=== PATIENT | male | born 1990 | race Caucasian/White ===

== ENCOUNTER 2020-02-29 16:52 | Emergency (ER) | payer SELFPAY ==
--- NOTE | ~2020-02-29 | XR_ITS ---
EXAMINATION: XR knee RT 2V INDICATION: Right knee pain, initial encounter TECHNIQUE: Two views of the right knee are obtained. COMPARISON: None available FINDINGS: There is an acute, traumatic, closed, oblique fracture involving the lateral tibial plateau and extending inferiorly to involve the proximal shaft of the tibia. Lipohemarthrosis is noted in th e knee joint. No additional acute osseous findings are evident.. IMPRESSION: 1. Acute lateral tibial plateau fracture extending into the proximal tibial shaft. Reviewed, dictated and finalized at location A. IMPRESSION: 1. Acute lateral tibial plateau fracture extending into the proximal tibial sha ft.
[2020-02-29 17:43] VITALS: BP 140/76; PULSE 102; RESP 16; TEMP 36.8; O2SAT 96
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
--- NOTE | 2020-02-29 19:01 | PC.NURSE ---
Call placed to [facility] for consult for ortho, Oncall Dr. Diaz for ortho, # recieved for Dr. Diaz
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
[2020-02-29] MEDS: MORPHINE SULFATE 2 MG/ML INJ IV PUSH (19:39)
[2020-02-29 19:41] VITALS: BP 141/71; PULSE 114; RESP 20; TEMP 36.8; O2SAT 98
== END 2020-02-29 20:15 | disposition short-term general hospital (02) ==
PROVIDERS: Emergency Provider Emergency Medicine
DX: S82.141A Displaced bicondylar fracture of right tibia, initial encounter for closed fracture (principal); W22.8XXA Striking against or struck by other objects, initial encounter
CPT/HCPCS: 73560; 96374; 99283; 99285; J2270; L1830

== ENCOUNTER 2020-06-30 10:22 | Outpatient (CLI) | payer OTHER, SELFPAY ==
--- NOTE | ~2020-06-30 | XR_ITS ---
EXAMINATION: XR knee RT 3V DATE: 06/30/2020 10:46 INDICATION: Right knee pain. TECHNIQUE: 3 views of right knee were obtained. COMPARISON: Right knee radiographs 02/29/2020 FINDINGS: Bone alignment is normal. No acute fracture. There is a fracture deformity of lateral tibia l condyle with internal fixation with lateral plate and screws. There is incongruence of the articula r surface. There is moderate osteoarthritis of lateral compartment and mild osteoarthritis of patello femoral compartment. There is a small knee joint effusion. IMPRESSION: 1. Healing fracture of lateral tibial condyle with internal fixation with incongruence of the articul ar surface. 2. Moderate right knee osteoarthritis. 3. Small right knee joint effusion. Reviewed, dictated and finalized at location A. Y LEVEL RECEPTIONIST IMPRESSION: 1. Healing fracture of lateral tibial condyle with internal fixation with incon gruence of the articular surface. 2. Moderate right knee osteoarthritis. 3. Small right knee joint effusion.
--- NOTE | ~2020-06-30 | XR_ITS ---
EXAMINATION: XR tibia fibula RT 2V DATE: 06/30/2020 10:47 INDICATION: Medial right knee pain. TECHNIQUE: 2 views of right tibia and fibula on 3 radiographs were obtained. COMPARISON: Right knee radiographs 02/29/2020 FINDINGS: There is a fracture deformity of lateral tibial condyle with internal fixation with lateral plate and screws. There is incongruence of the articular surface. There is moderate right knee osteo arthritis. IMPRESSION: 1. Healing fracture of lateral tibial condyle with internal fixation with incongruence of the articul ar surface. 2. Moderate right knee osteoarthritis. Reviewed, dictated and finalized at location A. [employer]IST IMPRESSION: 1. Healing fracture of lateral tibial condyle with internal fixation with incon gruence of the articular surface. 2. Moderate right knee osteoarthritis.
== END 2020-06-30 10:23 | disposition home or self-care (01) ==
PROVIDERS: PCP Family Medicine; Visit Provider Family Medicine
DX: M25.561 Pain in right knee (principal)
CPT/HCPCS: 73562; 73590

== ENCOUNTER 2020-09-30 12:49 | Emergency (ER) | payer OTHER, SELFPAY ==
--- NOTE | 2020-09-30 13:08 | ED.SKABFB ---
HPI - Skin/Abscess/Foreign Bdy General Chief complaint: Skin/Abscess/Foreign Body Stated complaint: Chest area swollen Time Seen by Provider: 09/30/20 13:08 Source: patient Mode of arrival: ambulatory Limitations: no limitations History of Present Illness HPI narrative: 30-year-old man comes in today complaining of pain, redness and swelling the right side of his chest that started several days ago. He states that 2 days ago there was a pimple like lesion there and he squeezed it. It has gotten worse since then. He denies fever, nausea, vomiting or prior skin infections. complaint: abscess/boil Onset (ago): day(s) (3-4) Tetanus up to date: unsure Location: chest Severity: moderate Quality: sharp Pain Consistency: constant Relieving factors: none Exacerbating factors: palpation Context: other ( started after he shaved his chest) Associated symptoms: denies other symptoms Treatments prior to arrival: OTC topical medication Related Data Allergies Allergy/AdvReac Type Severity Reaction Status Date / Time No Known Allergies Allergy Verified 02/29/20 18:32 Review of Systems Constitutional: Constitutional: Denies chills and Denies fever(s) ENT: Denies nasal congestion and Denies sore throat Cardiovascular: Cardiovascular: Reports chest pain and Denies radiating jaw, neck or arm pain Respiratory: Respiratory: Denies cough, Denies dyspnea and Denies wheezing Gastrointestinal: Gastrointestinal: Denies diarrhea, Denies nausea and Denies vomiting Musculoskeletal: Musculoskeletal: Denies arthralgias and Denies joint swelling Integumentary/Breasts: Skin/Breast: Denies pruritus, Reports erythema and Denies rash Neurologic: Denies vertigo, Denies dizziness and Denies syncope Hematologic/Lymphatic: Hematologic/Lymphatic: Denies easy bleeding and Denies easy bruising Allergic/Immunologic: Allergic/Immunologic: Denies lip swelling and Denies throat swelling PMFSH Past Medical History Medical History (Updated 09/30/20 @ 13:25 by Misha Barcenas MD) Patient denies medical problems Social History Social History (Updated 09/30/20 @ 13:17 by Misha Barcenas MD) Smoking status: Current every day smoker Alcohol intake: current Alcohol use details: occasional Substance use: never Gender identity (if verbalized by the patient): Male Exam Const: General: healthy appearing, no acute distress and alert Orientation/consciousness: patient oriented x3 Limitations: no limitations Eyes: Conjunctivae: conjunctivae normal Pupils: Equal, round and reactive pupils present EOM: EOMs intact bilaterally Chest: Other: 15 cm diameter area of erythema, the central portion of which is indurated and has a draining lesion. There is no fluctuance. Resp: Effort & Inspection: normal respiratory effort and not labored Auscultation: clear to auscultation bilaterally, no rales, no rhonchi and no wheezes Cardio: Rate: regular rate Rhythm: regular rhythm Heart sounds: no murmurs Skin: General skin exam: normal color, no jaundice and no pallor Rashes: no rashes Neuro: General: patient oriented x3, moves all extremities and no focal motor deficits Speech: normal speech Gait exam (Neuro): Normal gait present Extrem: General: normal to inspection and no clubbing, cyanosis or edema Psych: Appearance: grossly normal and well kempt Mental Status: mental status grossly normal Affect: normal affect Attitude: cooperative Thought content: Yes Normal thought content present Course Vital Signs Vital signs: Vital Signs Temperature 36.6 C 09/30/20 13:17 Pulse Rate 102 H 09/30/20 13:17 Respiratory Rate 20 09/30/20 13:17 Blood Pressure 122/76 09/30/20 13:17 Pulse Oximetry 100 09/30/20 13:17 Temperature 36.6 C 09/30/20 13:17 Pulse Rate 102 H 09/30/20 13:17 Respiratory Rate 20 09/30/20 13:17 Blood Pressure 122/76 09/30/20 13:17 Pulse Oximetry 100 09/30/20 13:17 MDM - Skin/Abscess/Fo
[2020-09-30 13:17] VITALS: BP 122/76; PULSE 102; RESP 20; TEMP 36.6; O2SAT 100
[2020-09-30 13:49] VITALS: BP 110/83; PULSE 100; RESP 20; TEMP 36.7; O2SAT 98
== END 2020-09-30 13:52 | disposition home or self-care (01) ==
PROVIDERS: Emergency Provider Emergency Medicine; PCP Family Medicine
DX: L03.319 Cellulitis of trunk, unspecified (principal); L02.213 Cutaneous abscess of chest wall; F17.200 Nicotine dependence, unspecified, uncomplicated
CPT/HCPCS: 99283

== ENCOUNTER → 2021-03-22 11:31 | Emergency (ER) | payer OTHER, SELFPAY | END | disposition left against medical advice (07) | LOC: CHSED 11:34 | PROVIDERS: Emergency Provider Emergency Medicine; PCP Family Medicine | DX: Z04.9 Encounter for examination and observation for unspecified reason (principal) | CPT/HCPCS: 99199 ==

== ENCOUNTER 2021-03-23 15:49 | Emergency (ER) | payer OTHER, SELFPAY ==
[2021-03-23 16:24] VITALS: BP 137/79; PULSE 115; RESP 20; TEMP 37.3; O2SAT 99
--- NOTE | 2021-03-23 17:06 | ED.SKABFB ---
HPI - Skin/Abscess/Foreign Bdy General Chief complaint: Skin/Abscess/Foreign Body Stated complaint: spider bite Time Seen by Provider: 03/23/21 15:51 Source: patient and RN notes reviewed Mode of arrival: ambulatory Limitations: no limitations History of Present Illness complaint: insect bite/sting Onset (ago): day(s) (2) Location: LUE Severity: moderate Severity scale (1-10): 8 Quality: aching and dull Pain Consistency: constant Relieving factors: none Exacerbating factors: movement Context: other (bite not seen) Associated symptoms: denies other symptoms Treatments prior to arrival: none Related Data Allergies Allergy/AdvReac Type Severity Reaction Status Date / Time No Known Allergies Allergy Verified 02/29/20 18:32 Review of Systems Review of Systems: All systems reviewed & are unremarkable except as noted in HPI and below Constitutional: Constitutional: Reports as per HPI and Reports no additional constitutional complaints Eyes: Eyes: Reports as per HPI and Reports no additional eye complaints ENT: Reports system reviewed and no additional complaints, except as documented and Reports as per HPI Cardiovascular: Cardiovascular: Reports as per HPI and Reports no additional cardiovascular complaints Respiratory: Respiratory: Reports as per HPI and Reports no additional respiratory complaints Gastrointestinal: Gastrointestinal: Reports as per HPI and Reports no additional gastrointestinal complaints Genitourinary: Genitourinary: Reports no additional male genitourinary complaints and Reports as per HPI Musculoskeletal: Musculoskeletal: Reports no additional musculoskeletal complaints and Reports as per HPI Comments: left forearm swelling, redness Integumentary/Breasts: Skin/Breast: Reports system reviewed and no additional complaints, except as docu and Reports as per HPI Neurologic: Reports system reviewed and no additional complaints, except as documented and Reports as per HPI Psychiatric: Psychiatric: Reports no additional psychiatric complaints and Reports as per HPI Endocrine: Endocrine: Reports no additional endocrine complaints and Reports as per HPI Hematologic/Lymphatic: Hematologic/Lymphatic: Reports no additional hematologic/lymphatic complaints and Reports as per HPI Allergic/Immunologic: Allergic/Immunologic: Reports no additional allergic/immunologic complaints and Reports as per HPI PMFSH Past Medical History Medical History Insect bite Patient denies medical problems Social History Social History Smoking status: Current every day smoker Alcohol intake: current Alcohol use details: occasional Substance use: never Gender identity (if verbalized by the patient): Male Exam Const: General: no acute distress and alert Nutritional Appearance: well nourished Orientation/consciousness: patient oriented x3 HENMT: Head: normal to inspection Ears: external ears normal and TM's normal bilaterally General nose exam: Normal external nose present and Normal nares present Mouth: Yes Normal oral and palatal mucosa present and Yes lip normal Teeth and gingiva: dentition normal Eyes: Conjunctivae: conjunctivae normal Pupils: Equal, round and reactive pupils present EOM: EOMs intact bilaterally Neck: Neck: normal visual inspection and no lymphadenopathy Chest: Chest palpation & inspection: normal inspection of the chest Resp: Effort & Inspection: normal respiratory effort Auscultation: clear to auscultation bilaterally Cardio: Rate: regular rate Rhythm: regular rhythm GI: Auscultation: normal bowel sounds : General: Yes no CVA tenderness Testes: Testes normal Back/Spine/Pelvis: Back: no CVA tenderness Skin: Other: Insect bite to right medial forearm: erythematous 2.5 cm diameter firm lump with no acute pus drainage. Neuro: General: patient oriented x3,
--- NOTE | 2021-03-23 17:17 | PC.NURSE ---
1700 pt refused labs and iv and meds and walked out states he does not have an hour to receive fluids and antibiotics got up and walked out
== END 2021-03-23 17:00 | disposition left against medical advice (07) ==
PROVIDERS: Emergency Provider Emergency Medicine; PCP Family Medicine
DX: S40.862A Insect bite (nonvenomous) of left upper arm, initial encounter (principal); L03.90 Cellulitis, unspecified; W57.XXXA Bitten or stung by nonvenomous insect and other nonvenomous arthropods, initial encounter
CPT/HCPCS: 99281; 99282

== ENCOUNTER 2021-07-23 01:23 | Emergency (ER) | payer OTHER, SELFPAY ==
[2021-07-23 01:37] VITALS: BP 138/101; PULSE 116; RESP 18; TEMP 36.6; O2SAT 100
--- NOTE | 2021-07-23 01:40 | ED.WOUNDLAC ---
HPI - Wound/Laceration General Chief Complaint: Wound/Laceration Stated Complaint: wound right arm Source: patient Mode of arrival: ambulatory Limitations: no limitations History of Present Illness HPI narrative: this is a 31-year-old gentleman that presents with an area of inflammation abscess that is firm tender currently not draining with surrounding area of erythema under his right under arm with no fever chills there has been some drainage initially during the day with a yellow discharge. Onset (ago): day(s) Location: other ( right arm) Extremity Location: Right: arm ( this erythema warmth tenderness) Related Data Allergies Allergy/AdvReac Type Severity Reaction Status Date / Time No Known Allergies Allergy Verified 02/29/20 18:32 Review of Systems Review of Systems: All systems reviewed & are unremarkable except as noted in HPI and below PMFSH Past Medical History Medical History Insect bite Patient denies medical problems Social History Social History Smoking status: Current every day smoker Alcohol intake: current Alcohol use details: occasional Substance use: never Gender identity (if verbalized by the patient): Male Exam Const: General: no acute distress and alert Orientation/consciousness: patient oriented x3 HENMT: Head: normal to inspection Eyes: Conjunctivae: conjunctivae normal Pupils: Equal, round and reactive pupils present Neck: Neck: normal visual inspection, no lymphadenopathy and no meningeal signs Chest: Chest palpation & inspection: normal inspection of the chest Resp: Effort & Inspection: normal respiratory effort Auscultation: clear to auscultation bilaterally Cardio: Rate: regular rate Rhythm: regular rhythm GI: GI Palp: Yes Soft to palpation Percussion: Yes normal to percussion Skin: Other: Abscess that is firm nonfluctuant with surrounding area of erythema located under his right underarm Neuro: General: patient oriented x3 and moves all extremities Extrem: General: normal to inspection and no pedal edema Psych: Mental Status: mental status grossly normal Affect: normal affect Course Course Emergency Course: patient to receive uses a tetanus shot and a dose of 1g IM ceftriaxone. Critical Care Time Critical Care Time Critical Care Time: No Discharge Plan Discharge Clinical Impression: Abscess Patient Disposition: Home, Self-Care Condition: Stable Instructions: Antibiotic Form, Abscess (ED) Additional Instructions: take medicine as prescribed can use Tylenol or Motrin along with antibiotics and follow-up with primary care physician within 1 week Prescriptions: New amoxicillin-pot clavulanate [Augmentin] 875-125 mg tablet 1 tablet PO Q12H Qty: 20 RF: 0 No Action acetaminophen-codeine 300-30 mg tablet 1 tablet PO Q6H PRN (Reason: pain) Qty: 6 RF: 0 clindamycin HCl 300 mg capsule 300 mg PO Q6H Qty: 40 RF: 0 Follow-up/Referrals: Shyam Wilson MD [Primary Care Provider] - Time of Disposition: 01:44
[2021-07-23] MEDS: cefTRIAXone 1 GM VIAL IM (01:54)
[2021-07-23] MEDS: LIDOCAINE HCL 1% LOCAL INJ 20 ML VIAL (01:54)
[2021-07-23] MEDS: TETANUS,DIPHTHERIA,AC PERTUSSIS ADULT 0.5 ML (ADACEL) IM (01:56)
[2021-07-23 02:12] VITALS: BP 118/84; PULSE 107; RESP 18; O2SAT 99
== END 2021-07-23 02:28 | disposition home or self-care (01) ==
PROVIDERS: Emergency Provider Emergency Medicine; PCP Family Medicine
DX: L02.413 Cutaneous abscess of right upper limb (principal)
CPT/HCPCS: 90471; 90715; 96372; 99283; J0696

== ENCOUNTER 2022-08-03 12:01 | Emergency (ER) | payer OTHER, SELFPAY ==
[2022-08-03 12:12] VITALS: BP 145/95; PULSE 78; RESP 16; TEMP 36.4; O2SAT 96
--- NOTE | 2022-08-03 12:12 | ED.GENADULT ---
HPI - General Adult General Chief complaint: Dental/Oral Stated complaint: toothache Time Seen by Provider: 08/03/22 12:08 History of Present Illness HPI narrative: Jef is a previously healthy 32M that presented to the ED with worsening tooth pain for the last couple days since he cracked a tooth. He denies fevers, chills, N/V, diarrhea, dysphagia and dyspnea. Related Data Allergies Allergy/AdvReac Type Severity Reaction Status Date / Time No Known Allergies Allergy Verified 08/03/22 12:18 Review of Systems Review of Systems: All systems reviewed & are unremarkable except as noted in HPI and below JANELLSH Past Medical History Medical History Insect bite Patient denies medical problems Social History Social History Smoking status: Current every day smoker Alcohol intake: current Alcohol use details: occasional Substance use: never Gender identity (if verbalized by the patient): Male Exam Const: General: healthy appearing and no acute distress Nutritional Appearance: well nourished Orientation/consciousness: patient oriented x3 HENMT: Head: normal to inspection Ears: external ears normal Face/Nose/Sinus: Normal external nose present Mouth: Yes Normal oral and palatal mucosa present Other: Cracked tooth in the right lower molars with an erythematous base that is TTP. Generally poor dentition Eyes: Conjunctivae: conjunctivae normal Resp: Effort & Inspection: normal respiratory effort Cardio: Rate: regular rate GI: Inspection: non-distended GI Palp: Yes Soft to palpation and No Tenderness to palpation present (GI) Skin: General skin exam: normal color Rashes: no rashes Neuro: General: patient oriented x3 and moves all extremities Cranial nerves: Yes Nystagmus not present Extrem: General: normal to inspection Psych: Mental Status: mental status grossly normal Course Course Emergency Course: ordered NOrco and Augmentin Vital Signs Vital signs: Vital Signs Temperature 97.5 F L 08/03/22 12:12 Pulse Rate 78 08/03/22 12:12 Respiratory Rate 16 08/03/22 12:12 Blood Pressure 145/95 H 08/03/22 12:12 Pulse Oximetry 96 08/03/22 12:12 Oxygen Delivery Room Air 08/03/22 12:12 Temperature 97.5 F L 08/03/22 12:40 Pulse Rate 78 08/03/22 12:40 Respiratory Rate 16 08/03/22 12:40 Blood Pressure 145/95 H 08/03/22 12:40 Pulse Oximetry 96 08/03/22 12:40 Oxygen Delivery Room Air 08/03/22 12:40 Medical Decision Making Vital Signs Vital Signs: Vital Signs Temperature 97.5 F L 08/03/22 12:12 Pulse Rate 78 08/03/22 12:12 Respiratory Rate 16 08/03/22 12:12 Blood Pressure 145/95 H 08/03/22 12:12 Pulse Oximetry 96 08/03/22 12:12 Oxygen Delivery Room Air 08/03/22 12:12 Temperature 97.5 F L 08/03/22 12:40 Pulse Rate 78 08/03/22 12:40 Respiratory Rate 16 08/03/22 12:40 Blood Pressure 145/95 H 08/03/22 12:40 Pulse Oximetry 96 08/03/22 12:40 Oxygen Delivery Room Air 08/03/22 12:40 Discharge Plan Discharge Clinical Impression: Dental abscess Patient Disposition: Home, Self-Care Condition: Stable Instructions: Toothache (ED) Prescriptions: New amoxicillin-pot clavulanate 875-125 mg tablet 1 tablet PO Q12H Qty: 10 0RF hydrocodone-acetaminophen 5-325 mg tablet 1 tablet PO Q8H PRN (Reason: pain) Qty: 10 0RF Follow-up/Referrals: Shyam Wilson MD [Primary Care Provider] - Stand Alone Forms: Work/School Release IP
[2022-08-03] MEDS: HYDROcodone/acetaminophen (*CRX) 5-325 MG TABLET 1 TAB PO (12:25)
[2022-08-03] MEDS: AMOXICILLIN/CLAVULANATE K 875-125 MG TAB 1 TABLET PO (12:25)
[2022-08-03 12:40] VITALS: BP 145/95; PULSE 78; RESP 16; TEMP 36.4; O2SAT 96
== END 2022-08-03 12:42 | disposition home or self-care (01) ==
PROVIDERS: Emergency Provider Family Medicine; PCP Family Medicine
DX: K04.7 Periapical abscess without sinus (principal); F17.200 Nicotine dependence, unspecified, uncomplicated
CPT/HCPCS: 99283; A9270

== ENCOUNTER 2022-11-01 08:09 | Emergency (ER) | payer OTHER, SELFPAY ==
[2022-11-01 08:09] VITALS: BP 154/99; PULSE 90; RESP 18; TEMP 37.5; O2SAT 98
--- NOTE | 2022-11-01 08:47 | ED.DENTAL ---
HPI - Dental/Oral General Chief complaint: Dental/Oral Stated complaint: dental abscess Source: patient Mode of arrival: ambulatory Limitations: no limitations History of Present Illness HPI Narrative: 32-year-old male with no significant past medical history presents to the ER with a 3 day history of -- right lower dental pain with swelling of the right lower jaw. History of extensive dental caries. MD Complaint: tooth pain Location: Tooth # ( 28, 29, 30) Onset (ago): day(s) ( started 3 days ago) Duration: constant Severity: severe Relieving factors: nothing Exacerbating factors: nothing Context: history of dental caries Associated symptoms: gum swelling Treatment prior to arrival: other ( on amoxicillin) Related Data Allergies Allergy/AdvReac Type Severity Reaction Status Date / Time No Known Allergies Allergy Verified 11/01/22 08:34 Review of Systems Review of Systems: All systems reviewed & are unremarkable except as noted in HPI and below Constitutional: Constitutional: Reports as per HPI and Reports no additional constitutional complaints Eyes: Eyes: Reports as per HPI and Reports no additional eye complaints ENT: Reports system reviewed and no additional complaints, except as documented and Reports as per HPI Comments: right lower dental pain along with jaw and gum swelling Cardiovascular: Cardiovascular: Reports as per HPI and Reports no additional cardiovascular complaints Respiratory: Respiratory: Reports as per HPI and Reports no additional respiratory complaints Gastrointestinal: Gastrointestinal: Reports as per HPI and Reports no additional gastrointestinal complaints Musculoskeletal: Musculoskeletal: Reports no additional musculoskeletal complaints and Reports as per HPI Integumentary/Breasts: Skin/Breast: Reports system reviewed and no additional complaints, except as docu and Reports as per HPI Neurologic: Reports system reviewed and no additional complaints, except as documented and Reports as per HPI Psychiatric: Psychiatric: Reports no additional psychiatric complaints and Reports as per HPI Endocrine: Endocrine: Reports no additional endocrine complaints and Reports as per HPI Hematologic/Lymphatic: Hematologic/Lymphatic: Reports no additional hematologic/lymphatic complaints and Reports as per HPI Allergic/Immunologic: Allergic/Immunologic: Reports no additional allergic/immunologic complaints and Reports as per HPI PMFSH Past Medical History Medical History Insect bite Patient denies medical problems Social History Social History Smoking status: Current every day smoker Alcohol intake: current Alcohol use details: occasional Substance use: never Gender identity (if verbalized by the patient): Male Exam Const: General: no acute distress Orientation/consciousness: patient oriented x3 Limitations: no limitations HENMT: Head: normal to inspection Ears: external ears normal Face/Nose/Sinus: Normal external nose present Face and sinus: normal facial exam Mouth: Yes Normal oral and palatal mucosa present Teeth and gingiva: dentition normal ( 28,29,30) Throat: posterior oropharynx normal Other: swelling of the gums around 28,29,30. Fracture of the crowns of 28,29,30 Swelling of the right lower jaw. Eyes: Conjunctivae: conjunctivae normal Pupils: Equal, round and reactive pupils present EOM: EOMs intact bilaterally Direct Ophthalmoscopy: no photophobia Neck: Neck: normal visual inspection and no lymphadenopathy Chest: Chest palpation & inspection: normal inspection of the chest Resp: Effort & Inspection: normal respiratory effort Auscultation: clear to auscultation bilaterally Cardio: Rate: regular rate Rhythm: regular rhythm GI: Auscultation: normal bowel sounds Other: no tenderness/rigidity / rebound. : General: Yes no CVA tenderness
[2022-11-01] MEDS: HYDROcodone/acetaminophen (*CRX) 5-325 MG TABLET 1 TAB PO (09:10)
== END 2022-11-01 09:20 | disposition home or self-care (01) ==
PROVIDERS: Emergency Provider Internal Medicine Critical Care Medicine; PCP Family Medicine
DX: K02.9 Dental caries, unspecified (principal); K05.10 Chronic gingivitis, plaque induced; F17.200 Nicotine dependence, unspecified, uncomplicated
CPT/HCPCS: 99283; A9270

== ENCOUNTER 2025-04-29 11:51 | Outpatient (CLI) | payer OTHER, SELFPAY ==
[2025-04-29 12:08] LABS: Hematocrit 45.2 % (40.0-54.0); Hemoglobin 15.5 g/dL (14.0-18.0); Immature Granulocyte Percent A 0.4 % (0.0-0.0); Lymphocytes Absolute Auto 2.59 K/mm3 (1.10-4.50); Mean Corpuscular HGB Conc 34.3 g/dL (32-36); Mean Corpuscular Hemoglobin 29.8 pg (27.0-31.0); Mean Corpuscular Volume 86.9 fL (78.0-102.0); Nucleated Red Blood Cells Absolute Auto 0.00 K/mm3 (0.00-0.00); Nucleated Red Blood Cells Perc 0.0 % (0-0.0); Platelet Count Result 254 K/mm3 (150-420); Red Blood Count 5.20 M/mm3 (4.70-6.10); White Blood Count 7.8 K/mm3 (4.8-10.8)
--- OUTSIDE RECORDS SUMMARY | 2025-04-29 12:24 | XMS_ITS | Clinical Summary ---
Author Organization [facility] Address [address] [place] [id number] Care Team Providers Care Talcer Name Role Phone None, Provider MD Primary Care Provider Unavaila ble Allergies No known active allergies Medications No known medications Active Problems Problem Noted Date Diagnosed Date Right medial tibial plateau fracture 03/06/2020 Tibial plateau fracture 03/05/2020 Family History Medical History Relation Comments No Known Problems Father No Known Problems Mother Relation Status Comments Father Alive Mother Alive Social History Tobacco Use Types Packs/Day Years Used Date Smoking Tobacco: Every Day Cigarettes 1 12 Smokeless Tobacco: Never Alcohol Use Standard Drinks/Week Comments Yes 0 (1 standard drink = 0.6 oz pur e alcohol) occasionally Sex and Gender Information Value Date Recorded Sex Assigned at Not on file Legal Sex Male 7:24 PM CDT Gender Identity Not on file Sexual Orientation Not on file Last Filed Vital Signs Vital Sign Reading Time Taken Comments Blood Pressure 137/83 03/06/2020 12:20 PM CDT Pulse 87 03/06/2020 12:20 PM CDT Temperature 36.7 C (98.1 F) 03/06/2020 12:20 PM CDT Respiratory Rate 18 03/06/2020 12:20 PM CDT Oxygen Saturation 98% 03/06/2020 12:20 PM CDT Inhaled Oxygen Concentration - - Weight 86.2 kg (190 lb) 03/05/2020 12:53 PM CDT Height 175.3 cm (5' 9) 03/05/2020 12:53 PM CDT Body Mass Index 28.06 03/05/2020 12:53 PM CDT Plan of Treatment Health Maintenance Due Date Last Done Comments Annual Physical 1993 Hepatitis C 2008 DTaP, Tdap and Td Vaccines (2 - Tdap) 2009 03/29/1996, 03/02/1992, 02/25/1991, Additional history exists Hepatitis B Vaccines (1 of 3 - 19+ 3-dose series) 2009 Pneumococcal Vaccine: Pediatrics (0 to 5 Years) and At-Risk Patients (6 to 49 Years) (1 of 2 - PCV) 2009 HPV Vaccines (1 - 3-dose SCDM series) 2017 COVID-19 Vaccine ( - season) 2025 Meningococcal B Vaccine Aged Out No l onger eligible based on patient's age to complete this topic Meningococcal Vaccine Aged Out No lissa milady eligible based on patient's age to complete this topic RSV Immunizations Under 20 Months Aged Out No longer eligible based on patient's age to complete this topic Medical Devices Implanted Type Area Sales Engagement Manager Device Identifier Shelf Expiration Date Model / Serial / Lot Graft Bone Allosource Cancellous Crushed Freeze Dried 30ml - [id number] Implanted:Qty: 1 on 03/05/2020 by Cruzito Barger MD at [facility] Right: [employer] 10/08/2023 [id number] / / [id number] Plate Adilia Tibial Rt Prox 8 Hole - [id number] Implanted:Qty: 1 on 03/05/2020 by Cruzito Barger MD at [facility] Right: [employer] [id number] / / Screw Cortical Adilia 3.5 X 40mm - [id number] Implanted:Qty: 1 on 03/05/2020 by Cruzito Barger MD at [facility] Right: [employer] [id number] / / 3.5 Locking Screw 80mm Implanted:Qty: 4 on 03/05/2020 by Cruzito Barger MD at [facility] Right: [employer] [id number] / / Screw Cortical Adilia 3.5 X 36mm - [id number] Implanted:Qty: 1 on 03/05/2020 by Cruzito Barger MD at [facility] Right: [employer] [id number] / / 3.5 Locking 75mm Implanted:Qty: 1 on 03/05/2020 by Cruzito Barger MD at [facility] Right: [employer] [id number] / / Screw Cortical Adilia 3.5 X 34mm - [id number] Implanted:Qty: 1 on 03/05/2020 by Cruzito Barger MD at [facility] Right: [employer] [id number] / / Explanted Type Area Sales Engagement Manager Device Identifier Shelf Expiration Date Model / Serial / Lot Drill Bit Adilia 2.7mm - [id number] Explanted:Qty: 1 on 03/05/2020 at [facility] Right: [employer] [id number] / / Drill Bit Adilia 2.5mm - [id number] Explanted:Qty: 1 on 03/05/2020 at [facility] Right: [employer] [id number] / / Insurance [employer] [place] [employer] Care Teams Talcer Relationship Specialty Start Date End Date None, Provider, PCP - General 02/29/20
== END 2025-04-29 11:52 ==
LOC: CHSLAB 11:54
PROVIDERS: PCP Family Medicine; Visit Provider Family Medicine
DX: R22.1 Localized swelling, mass and lump, neck (principal)
CPT/HCPCS: 36415; 85025